=== PATIENT | male | born 1975 | race Caucasian/White ===

== ENCOUNTER 2017-01-17 04:05 | Emergency (ER) | payer OTHER ==
--- NOTE | 2017-01-17 04:40 | EDM.PDOC ---
ED HPI Trauma - General Chief Complaint: Upper Extremity Injury/Pain Stated Complaint: SHOULDER INJURY Time Seen by Provider: 01/17/17 04:37 - History of Present Illness INITIAL COMMENTS - FREE TEXT/NARRATIVE: HISTORY AND PHYSICAL: History of present illness: Patient's 41-year-old white male present to observe the right shoulder injury suffered when he fell prior to arrival there is no reported trauma or concern Review of systems: As per history of present illness and below otherwise all systems reviewed and negative. Past medical history: As per history of present illness and as reviewed below otherwise noncontributory. Surgical history: As per history of present illness and as reviewed below otherwise noncontributory. Social history: No reported history of drug or alcohol abuse. Family history: As per history of present illness and as reviewed below otherwise noncontributory. Physical exam: HEENT: Atraumatic, normocephalic, pupils reactive, negative for conjunctival pallor or scleral icterus, mucous membranes moist, throat clear, neck supple, nontender, trachea midline. Lungs: Clear to auscultation, breath sounds equal bilaterally, chest nontender. Heart: S1S2, regular, negative for clicks, rubs, or JVD. Abdomen: Soft, nondistended, nontender. Negative for masses or hepatosplenomegaly. Negative for costovertebral tenderness. Pelvis: Stable nontender. Genitourinary: Deferred. Rectal: Deferred. Extremities: Tenderness palpation in the region anterior deltoid limited range of motion secondary to pain no gross deformity Neuro: Awake, alert, oriented. Cranial nerves II through XII unremarkable. Cerebellum unremarkable. Motor and sensory unremarkable throughout. Exam nonfocal. Diagnostics: X-ray right shoulder Therapeutics: Sling Impression: #1 acute right shoulder injury Definitive disposition and diagnosis as appropriate pending reevaluation and review of above. Allergies/ADRs: Allergies No Known Allergies Allergy (Verified 01/11/16 01:17) Home Medications: Ambulatory Orders Simvastatin [Simvastatin] 20 mg PO DAILY 01/17/17 [Confirmed 01/17/17] Past Medical History HEENT History: Reports: None Cardiovascular History: Reports: None Respiratory History: Reports: None Genitourinary History: Reports: None Musculoskeletal History: Reports: None Neurological History: Reports: None Psychiatric History: Reports: Depression Endocrine/Metabolic History: Reports: None Hematologic History: Reports: None Immunologic History: Reports: None Oncologic (Cancer) History: Reports: None Dermatologic History: Reports: None - Infectious Disease History Infectious Disease History: Reports: Chicken pox - Past Surgical History Head Surgeries/Procedures: Reports: None HEENT Surgical History: Reports: None Cardiovascular Surgical History: Reports: None Respiratory Surgical History: Reports: None GI Surgical History: Reports: Appendectomy, Cholecystectomy, Hernia, abdominal Other GI Surgeries/Procedures: hernia x 2 Male Surgical History: Reports: None Endocrine Surgical History: Reports: None Neurological Surgical History: Reports: None Dermatological Surgical History: Reports: None Social & Family History - Family History Cardiac: Reports: High cholesterol, Hypertension, [place] - Tobacco Use Smoking Status *Q: Never Smoker Second Hand Smoke Exposure: Yes - Caffeine Use Caffeine Use: Reports: Energy drinks Caffeine Use Comment: 5-7 daily - Recreational Drug Use Recreational Drug Use: No - Living Situation & Occupation Living situation: Reports: (With children) Occupation: employed ([employer]) Review of Systems - Review of Systems Review Of Systems: ROS reveals no pertinent complaints other than HPI. Trauma Exam - Physical Exam Exam: See Below (See dictation) Course - Vital Signs Last Recorded V/S: Last Vital Signs Temp 36.9 C 01/17/17 04:05 Pulse 94 01/17/17 04:05 Resp 18 01/17/17 04:05 BP 119/82 01/17/17 04:05 Pulse Ox 95 01/17/17 04:05 - Orders/Labs/Meds Orders: Active Orders 24 hr Category Date Time Status Shoulder Comp Rt [CR] Stat Exams 01/17/17 04:10 Taken Departure - Departure Time of Disposition: 04:39 Disposition: Home, Self-Care 01 Condition: good Clinical Impression: Shoulder injury Forms: ED Department Discharge Additional Instructions: The following information is given to patients seen in the emergency department who are being discharged to home. This information is to outline your options for follow-up care. We provide all patients seen in our emergency department with a follow-up referral. The need for follow-up, as well as the timing and circumstances, are variable depending upon the specifics of your emergency department visit. If you don't have a primary care physician on staff, we will provide you with a referral. We always advise you to contact your personal physician following an emergency department visit to inform them of the circumstance of the visit and for follow-up with them and/or the need for any referrals to a consulting specialist. The emergency department will also refer you to a specialist when appropriate. This referral assures that you have the opportunity for followup care with a specialist. All of these measure are taken in an effort to provide you with optimal care, which includes your followup. Under all circumstances we always encourage you to contact your private physician who remains a resource for coordinating your care. When calling for followup care, please make the office aware that this follow-up is from your recent emergency room visit. If for any reason you are refused follow-up, please contact the [facility] emergency department at and asked to speak to the emergency department charge nurse. [facility] Professional [address], [address] [place] [address] Ultram is prescribed sling as directed call schedule appointment with orthopedic clinic return as needed. - My Orders Last 24 Hours: My Active Orders 01/17/17 04:10 Shoulder Comp Rt [CR] Stat - Assessment/Plan Last 24 Hours: My Active Orders 01/17/17 04:10 Shoulder Comp Rt [CR] Stat
[2017-01-17 04:57] VITALS: BP 104/60
--- NOTE | 2017-01-18 18:15 | CR ---
EXAM DATE: 01/17/17 PATIENT'S AGE: 41 Patient: ROSALIND GARVEY Facility: [place], [place] Site . Site : 1975 Study: XRay Shoulder Right [id number]/2/2017 4:25:50 AM Ordering Physician: Doctor Ann Final Report: INDICATION: SHOULDER PAIN. INJURED DURING WORK. PT STATES FELT SHOULDER POP IN AND OUT OF PLACE TECHNIQUE: Shoulder radiograph 2 views right COMPARISON: None FINDINGS: Bones: Alignment is normal. No acute fractures or aggressive bone lesions identified. Joint spaces: The glenohumeral joint is unremarkable in appearance. The acromioclavicular (AC) joint is unremarkable. No radiographic evidence of a shoulder effusion is seen. Soft tissues: The visualized hemithorax is unremarkable. No radiopaque foreign bodies are seen. IMPRESSION: 1. No acute osseous injuries are noted. Dictated by: Papi Goldsmith MD @ 01/17/2017 04:26:59 (Electronic Signature) Report Signed by Proxy and Original Signed Document filed in the Medical Record. [facility]
== END 2017-01-17 04:58 | disposition home or self-care (01) ==
LOC: MW.ED 04:05
DX: S49.91XA Unspecified injury of right shoulder and upper arm, initial encounter (principal); Z79.899 Other long term (current) drug therapy; Z90.49 Acquired absence of other specified parts of digestive tract; Z98.890 Other specified postprocedural states; W19.XXXA Unspecified fall, initial encounter
CPT/HCPCS: 73030; 99284; A4566; 99283

== ENCOUNTER → 2017-01-27 | Outpatient (CLI) | payer OTHER ==
--- NOTE | 2017-01-28 10:01 | MR ---
EXAM DATE: 01/27/17 PATIENT'S AGE: 41 Patient: ROSALIND GARVEY Facility: [place], [place] Site . Site : 1975 Study: MRI Shoulder Right [id number]/12/2017 6:48:19 PM Ordering Physician: Margarita Nielson Final Report: HISTORY: Right shoulder pain, clinical impingement syndrome. Technique: Axial sagittal oblique and coronal oblique T1, proton density and T2 fat-sat images were obtained of the right shoulder without contrast administration. Comparison: Radiographs 01/17/2017. Findings: Rotator cuff: Mild distal supraspinatus tendinosis. There is a 5 mm anterior/ posterior by 6 mm medial/lateral extent focal area of high T2 signal involving the distal supraspinatus tendon as seen on coronal oblique T2 fat-sat image #7 of series 401 compatible with a small area of partial thickness undersurface tendon tearing. This appears high-grade extending across greater than 50 percent of the thickness of the tendon distally. No definite full-thickness supraspinatus tendon tear. No supraspinatus muscle atrophy. Minor distal infraspinatus tendinosis without significant infraspinatus tendon tear or muscle atrophy. The distal teres minor tendon is intact. Teres minor muscle mass is maintained. Mild distal subscapularis tendinosis. No significant subscapularis tendon tearing or muscle atrophy. . AC joint and coracoacromial arch: Mild AC joint arthrosis. No AC joint widening or malalignment. The coracoclavicular ligament is intact. There is type 2 acromial morphology. No os acromiale. No significant subacromial spur. No excessive thickening of the coracoacromial ligament. No excessive downward sloping of the lateral acromion. The acromiohumeral measures approximately 6 mm. No subacromial-subdeltoid bursal fluid collection. Subcoracoid interval is adequate patent. No subcoracoid bursal fluid collection. . Biceps-labral complex: Long head biceps tendon is intact. There is no subluxation or dislocation of the tendon from the bicipital groove. Biceps anchor appears intact. Superior labrum appears intact. Labrum below the equator is intact. . Glenohumeral joint space: Physiologic quantity of joint fluid. No focal chondral defect or intra-articular joint body. No capsular edema. No malalignment. . Bones and soft tissues: No acute fracture. No avascular necrosis. No abnormality within the suprascapular or spinoglenoid notches nor within the quadrilateral space. Small foci of subcortical cystic-like change involve the posterior lateral aspect of the humeral head-greater tuberosity junction region. Impression: 1. Small 5 mm focus of high-grade partial thickness undersurface tearing of the distal supraspinatus tendon, right shoulder. No full-thickness tear or muscle atrophy. Mild tendinosis of the rotator cuff tendons otherwise. 2. The glenohumeral joint space and glenoid labrum are maintained. 3. Mild AC joint arthrosis. No AC joint widening, malalignment or disruption of the coracoclavicular ligament. 4. No fracture. Dictated by Brandon Chandra MD @ Jan 28 2017 8:17AM (Electronic Signature) Report Signed by Proxy and Original Signed Document filed in the Medical Record. [facility]
== END ==
LOC: MW.MRI 17:51
PROVIDERS: ATTEND Orthopaedic Surgery
DX: M25.511 Pain in right shoulder (principal); M75.41 Impingement syndrome of right shoulder; M75.111 Incomplete rotator cuff tear or rupture of right shoulder, not specified as traumatic; M19.011 Primary osteoarthritis, right shoulder
CPT/HCPCS: 73221-26-RT; 73221-RT

== ENCOUNTER 2018-02-13 14:05 | Observation (INO) | payer OTHER ==
[2018-02-13] MEDS ORDERED: methylPREDNISolone Sodium Succinate 125 MG/2 ML SDV IVPUSH ONE (14:08)
[2018-02-13] MEDS ORDERED: Albuterol/Ipratropium 3.0-0.5 MG/3 ML Neb Soln NEB ONE (14:08)
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
[2018-02-13 14:55] LABS: CHLORIDE,CL 103 mmol/L (98-107); SODIUM,NA 137 mmol/L (136-148)
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
[2018-02-13 21:06] VITALS: BP 121/76
--- NOTE | 2018-02-14 15:51 | CR ---
EXAM DATE: 02/13/18 PATIENT'S AGE: 42 Patient: ROSALIND GARVEY Facility: [place], [place] Site . Site : 1975 Study: XRay Chest [id number]/29/2018 3:04:47 PM Ordering Physician: Easton Byrnes Final Report: INDICATION: Cough TECHNIQUE: Chest 1 view. COMPARISON: None FINDINGS: Cardiovascular and mediastinum: Heart size and vasculature are normal in caliber and appearance. Mediastinum is within normal limits. Lungs and pleural space: Lungs are clear. No sign of infiltrate or mass. No sign of pleural effusion. No pneumothorax. Bones and soft tissues: No significant findings. Clothing or hair artifact over the left neck and supraclavicular region. IMPRESSION: Unremarkable chest. Dictated by Robinson Jay MD @ Feb 13 2018 3:21PM (Electronic Signature) Report Signed by Proxy. HEIDI
== END 2018-02-13 21:15 | disposition home or self-care (01) ==
LOC: MW.ED 14:05 → MW.MS 15:04
PROVIDERS: ADMIT Internal Medicine; ATTEND Internal Medicine
DX: T49.0X1A Poisoning by local antifungal, anti-infective and anti-inflammatory drugs, accidental (unintentional), initial encounter (principal); J68.0 Bronchitis and pneumonitis due to chemicals, gases, fumes and vapors; Z90.49 Acquired absence of other specified parts of digestive tract
CPT/HCPCS: 36415; 71045; 80053; 81001; 82375; 83690; 84484; 85025; 93005; 94640; 96374; 99285; J2930; 99284; G0378

== ENCOUNTER 2019-07-18 16:14 | Emergency (ER) | payer OTHER ==
[2019-07-18 16:28] VITALS: BP 121/79; PULSE 91
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
--- NOTE | 2019-07-18 16:58 | CR ---
Right tibia and fibula: AP and lateral views of the right tibia and fibula were obtained. Comparison: No previous study. No fracture or other bony abnormality is seen. Impression: No abnormality is identified on two-view right tibia and fibula exam. Diagnostic code #1 MTDD
[2019-07-18] MEDS ORDERED: Bacitracin Oint 1 GM U/D Packet TOP ONE (17:14)
[2019-07-18] MEDS ORDERED: Bacitracin Oint 1 GM U/D Packet ONE (17:16)
== END 2019-07-18 17:24 | disposition home or self-care (01) ==
LOC: MW.ED 16:14
DX: S81.831A Puncture wound without foreign body, right lower leg, initial encounter (principal); Z90.49 Acquired absence of other specified parts of digestive tract; W26.8XXA Contact with other sharp object(s), not elsewhere classified, initial encounter; Y93.B9 Activity, other involving muscle strengthening exercises; Y92.89 Other specified places as the place of occurrence of the external cause; Y99.0 Civilian activity done for income or pay
CPT/HCPCS: 12001; 73590; 99283; J2001

== ENCOUNTER 2020-01-17 06:26 | Day surgery (SDC) | payer OTHER ==
[~2020-01-17 06:26] MED LIST: Lactated Ringers 1,000 ML IV SCH
[2020-01-17] MEDS ORDERED: Bupivacaine 0.5%/EPINEPHrine 1:200,000 10 ML SDV ONE ×2 (07:00→07:41)
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
[2020-01-17] MEDS ORDERED: Lidocaine 2% 5 ML SDV ONE (07:01)
[2020-01-17] MEDS ORDERED: fentaNYL 100 MCG/2 ML SDV ONE ×2 (07:08→08:00)
[2020-01-17] MEDS ORDERED: Vancomycin 1 GM SDV ONE (07:42)
[2020-01-17] MEDS ORDERED: Dexamethasone 4 MG/ML 5 ML MDV ONE (07:59)
[2020-01-17] MEDS ORDERED: Lidocaine 2% 100 MG/5 ML Syringe ONE (08:00)
[2020-01-17] MEDS ORDERED: Ondansetron 4 MG/2 ML SDV ONE (08:00)
[2020-01-17] MEDS ORDERED: ceFAZolin 2 GM in Premix Bag 1 BAG IV SCH (08:00)
[2020-01-17] MEDS ORDERED: Propofol 200 MG/20 ML SDV ONE (08:00)
[2020-01-17] MEDS ORDERED: Midazolam 1 MG/ML 2 ML SDV ONE (08:01)
--- NOTE | 2020-01-17 08:07 | PCM.PRNOTE ---
- Free Text/Narrative Note: Explained supraclavicular block to patient. Pt verbalized understanding. Time out performed. Pt prepped and ultrasound probe draped. Ultrasound guided supraclavicular block performed. Bupivicaine 0.5 % with epi 20 ml and Lidocaine 2 % injected through a Stimiplex 20 gauge 2 inch needle. Negative blood aspiration Negative parasthesia. Pt tolerated procedure well. No signs of toxicity noted. Monitors applied during procedure and O2 applied. Pt given Fentanyl 100 mcg. Ultrasound picture stored in chart.
[2020-01-17] MEDS ORDERED: ePHEDrine 50 MG/ML SDV ONE (09:23)
[2020-01-17] MEDS ORDERED: Sodium Chloride 0.9% 20 ML ONE (09:24)
[2020-01-17] MEDS ORDERED: EPINEPHrine 1:10,000 1 MG/10 ML Syringe IVPUSH PRN (09:49)
[2020-01-17] MEDS ORDERED: Albuterol 0.083% 2.5 MG/3 ML Neb Soln NEB PRN (09:49)
[2020-01-17] MEDS ORDERED: Atropine 0.1 MG/ML 10 ML Syringe IVPUSH PRN ×2 (09:49)
[2020-01-17] MEDS ORDERED: 50% Dextrose in Water 50 ML Syringe IVPUSH PRN (09:49)
[2020-01-17] MEDS ORDERED: fentaNYL 100 MCG/2 ML SDV IVPUSH PRN (09:49)
[2020-01-17] MEDS ORDERED: Naloxone 0.4 MG/ML Syringe IVPUSH PRN (09:49)
--- NOTE | 2020-01-17 11:49 | PCM.POSTAN ---
POST ANESTHESIA ASSESSMENT - MENTAL STATUS Mental Status: Alert, Oriented - VITAL SIGNS Vital Signs: Last Vital Signs Temp 36.4 C 01/17/20 06:50 Pulse 109 H 01/17/20 11:40 Resp 19 01/17/20 11:40 BP 132/72 01/17/20 11:40 Pulse Ox 91 L 01/17/20 11:40 - RESPIRATORY Respiratory Status: Respiratory Rate WNL, Airway Patent, O2 Saturation Stable - CARDIOVASCULAR CV Status: Pulse Rate WNL, Blood Pressure Stable - GASTROINTESTINAL GI Status: No Symptoms - PAIN Pain Score: 0 - POST OP HYDRATION Hydration Status: Adequate & Stable - OBSERVATIONS Free Text/Narrative:: No anesthesia problems
--- NOTE | 2020-01-17 11:51 | PCM.OPNOTE ---
- General Post-Op/Procedure Note Date of Surgery/Procedure: 01/17/20 Operative Procedure(s): left distal biceps tendon repair Pre Op Diagnosis: left distal biceps partial rupture Post-Op Diagnosis: Same Anesthesia Technique: Moderate Sedation, Regional Block Primary Surgeon: Christian Epstein Fraud Analyst: Aretha Trevizo EBL in mLs: 25 Complications: None Condition: Good Free Text/Narrative:: Intake & Output 01/16/20 01/17/20 01/17/20 22:59 06:59 14:59 Intake Total 1800 Balance 1800
[2020-01-17] MEDS ORDERED: Acetaminophen/oxyCODONE 325-5 MG Tab PO PRN (12:16)
[2020-01-17] MEDS ORDERED: Acetaminophen/oxyCODONE 325-5 MG Tab ONE (12:17)
[2020-01-17] MEDS ORDERED: Promethazine 25 MG/ML SDV IM ONE (12:27)
[2020-01-17] MEDS ORDERED: Promethazine 25 MG/ML SDV ONE (12:38)
[2020-01-17] MEDS ORDERED: Albuterol/Ipratropium 3.0-0.5 MG/3 ML Neb Soln NEB ONE (12:52)
--- NOTE | 2020-01-17 14:32 | PCM48HPAN ---
Post Anesthesia Note - EVALUATION WITHIN 48HRS OF ANESTHETIC Vital Signs in Normal Range: Yes Patient Participated in Evaluation: Yes Respiratory Function Stable: Yes Airway Patent: Yes Cardiovascular Function Stable: Yes Hydration Status Stable: Yes Pain Control Satisfactory: Yes Nausea and Vomiting Control Satisfactory: Yes Mental Status Recovered: Yes Vital Signs: Last Vital Signs Temp 37.2 C 01/17/20 11:45 Pulse 103 H 01/17/20 12:00 Resp 18 01/17/20 12:00 BP 125/76 01/17/20 12:00 Pulse Ox 91 L 01/17/20 12:00 - COMMENTS/OBSERVATIONS Free Text/Narrative:: No anesthesia problems
[2020-01-17 16:13] VITALS: BP 123/60; PULSE 100
--- NOTE | 2020-01-17 18:23 | OR ---
SURGEON: Christian Epstein DATE OF PROCEDURE: 01/17/2020 PREOPERATIVE DIAGNOSIS: Left distal biceps partial rupture. POSTOPERATIVE DIAGNOSIS: Left distal biceps partial rupture. PROCEDURE: Left distal biceps tendon repair. PRIMARY SURGEON: Christian Epstein DO BLUE PRINTS TRIMMER: JAE Mcnamara ROLE OF BLUE PRINTS TRIMMER: Nurse practitioner, JAE Mcnamara, played an essential role in assisting in this case, helping to position the patient, retract structures as needed, as well as suturing and cutting sutures as indicated. Her presence improved patient's safety and decreased operative time. FLUID: Lactated Ringer's solution. ESTIMATED BLOOD LOSS: 25 mL. COMPLICATIONS: None. SPECIMEN: None. DISCHARGE DISPOSITION: Stable to PACU. HISTORY AND INDICATIONS FOR THE PROCEDURE: The patient was seen preoperatively in the clinic. He had suffered an injury while lifting weights to his left elbow. He felt a pop and had extreme weakness with difficulty with range of motion. Preoperative imaging failed to show a tear, however, given his pain, range of motion, and difference in thickness of the distal biceps tendon, I advised him to continue with the repair. 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 Risks and goals of the procedure were explained to the patient. Informed consent was obtained. DETAILS OF PROCEDURE: The patient was seen preoperatively by myself and the Anesthesia staff in the preoperative holding area where the operative site was marked. Anesthesia performed a regional block. The patient was then brought to the operative suite by Anesthesia staff where moderate sedation was administered. The left upper extremity was then prepped and draped in sterile manner. Time-out was called identifying the correct patient, the correct procedure, the correct site, and that antibiotics had been given within appropriate period of time. An incision was made in the midline proximal to the antecubital area and carried down about 5 cm. I then made an S-type incision to bring it more proximal. I then controlled bleeding with Bovie electrocautery. I very carefully identified the biceps tendon and followed it down to its insertion at the radial tuberosity. I had to ligate a radial recurrent vessel. I did that with silk and then used cautery. I then identified the radial tuberosity. I inserted a 2.3 mm Iconix anchor at the area of the radial tuberosity. I then using a free needle, took each of one of the strands and then went up proximal into the biceps tendon, tied that, and then tensioned through the anchor the repair and then tied it there. I then took those other strands, used a free needle, and then with a Krackow method extended the repair proximally and then tied. I then visualized more. I felt that there was a tear on the undersurface of the biceps where it inserts at the radial tuberosity. There was a questionable tear at the distal musculocutaneous junction and aponeurosis area, so I took a #2 FiberWire and placed a [id number] stitch at first and then did a Krackow stitch distally and then tied this. Having accomplished the goals, we irrigated copiously with saline and then closed subcutaneously with 2-0 Vicryl interrupted sutures followed by 3-0 nylon horizontal mattress sutures followed by Betadine-soaked Adaptic, Webril, and an Maynor. He was then placed into a hinged brace, locked at approximately 70 degrees of flexion. [id number] / MODL /[id number]
== END 2020-01-17 14:40 | disposition home or self-care (01) ==
LOC: MW.SDS 06:26
PROVIDERS: ATTEND Orthopaedic Surgery
DX: S46.212A Strain of muscle, fascia and tendon of other parts of biceps, left arm, initial encounter (principal); X50.0XXA Overexertion from strenuous movement or load, initial encounter
CPT/HCPCS: A9270-GY; C1713; J1100; J2001; J2250; J2405; J2550; J2704; J3010; J3370; J3490; J7120

== ENCOUNTER 2021-03-15 13:27 | Emergency (ER) | payer OTHER ==
[2021-03-15 13:56] VITALS: BP 123/79; PULSE 99
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
[2021-03-15] MEDS ORDERED: Sodium Chloride 0.9% 10 ML Syringe FLUSH PRN (14:01)
[2021-03-15] MEDS ORDERED: Sodium Chloride 0.9% 2.5 ML Syringe FLUSH PRN (14:01)
[2021-03-15 14:50] LABS: CARBON DIOXIDE,CO2 26.1 mmol/L (21.0-32.0); POTASSIUM,K 4.5 mmol/L (3.5-5.1)
[2021-03-15] MEDS ORDERED: Iopamidol 755 MG/ML 500 ML Multipack Bottle IVPUSH ONE (15:25)
--- NOTE | 2021-03-15 16:00 | CT ---
Indication: Facial swelling and swelling behind left ear Technique: Volumetric multidetector CT images of the temporal bones were obtained without the administration of IV contrast. Comparison: None available. Findings: The partially recommended as grossly normal in attenuation without gross midline shift or mass effect. Intrinsic attenuation and dorsey-white differentiation is difficult to assess secondary to bone kernel reconstruction. There is extensive bubbly secretion and polypoid mucosal thickening seen throughout the paranasal sinuses likely representing acute on chronic pansinus disease. The orbits and their contents are within normal limits. RIGHT TEMPORAL BONE: There is minimal cerumen within the external auditory canal, otherwise the external auditory canal is patent. The tympanic membrane is not thickened. The auditory ossicles are intact and well located. The epitympanum, mesotympanum and hypotympanum are clear. There is minimal opacification of the mastoid air cells. The internal auditory canal is intact without evidence of asymmetrical widening. The vestibule and cochlea are grossly intact without evidence of bony dehiscence. There is questionable mild dehiscence of the bony covering of the superior semicircular canal otherwise the semi circular canals are grossly unremarkable. The bony courses of the 7th cranial nerve, internal carotid artery and jugular veins are unremarkable without dehiscence. LEFT TEMPORAL BONE: The external auditory canal is clear. The tympanic membrane is not thickened. The auditory ossicles are intact and well located. The epitympanum, mesotympanum and hypotympanum are clear. The aditus ad antrum and mastoid air cells are clear. The internal auditory canal is intact without evidence of asymmetrical widening. The vestibule and cochlea are grossly intact without evidence of bony dehiscence. The lateral, superior, and posterior semicircular canals are intact without evidence of dehiscence. The bony courses of the 7th cranial nerve, internal carotid artery and jugular veins are unremarkable without dehiscence. There is partial visualization of periauricular abnormality corresponding to a somewhat prominent left parotid gland. 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 Correlate for history of right-sided hearing loss and/or Tullio`s phenomenon. Acute on chronic pansinus disease. Otherwise grossly unremarkable bilateral temporal bones with trace opacification of the right mastoid air cells which may represent remote sequela of prior otomastoiditis. Somewhat poor visualization of the area palpable concern in the left periauricular soft tissues likely corresponding to a prominent left parotid gland. Follow-up with contrast enhanced CT of the cervical soft tissues for improved characterization if there remains continued clinical concern. Please note that all CT scans at this facility use dose modulation, iterative reconstruction, and/or weight-based dosing when appropriate to reduce radiation dose to as low as reasonably achievable. Dictated by Karthik Clarke MD @ 03/15/2021 3:58:[address] Karthik Clarke @ Mar 15 2021 3:58PM
--- NOTE | 2021-03-15 16:04 | CT ---
Indication: Facial swelling behind left ear Technique: Volumetric multidetector CT images of the orbital and facial soft tissues were obtained before and after the administration of low osmolar intravenous contrast. 75 cc Isovue 370 low osmolar intravenous contrast Comparison: None available. Findings: The partially visualized brain parenchyma is normal in attenuation without evidence of abnormal enhancement. The globes and extra-ocular muscles are unremarkable. There is no significant periorbital soft tissue swelling. The retrobulbar fat is unremarkable without evidence of inflammatory change or fluid collection. There is extensive acute on chronic pansinusitis with chronic polypoid thickening and bubbly secretions. The mastoid air cells are clear. The nasopharynx is unremarkable. The fossae of Rosenmuller are clear. The visualized parotid glands are grossly unremarkable corresponding to the area of palpable concern. There is mild nonspecific soft tissue stranding of the subcutaneous soft tissues which may represent minimal superficial skin infection or inflammation. There is no evidence of pathologically enlarged cervical lymph node. The facial osseus structures are grossly intact without acute osseus abnormality. Impression: 1. Demonstration of a normal parotid gland corresponding to the area palpable concern with demonstration of mild superficial subcutaneous soft tissue swelling likely representing minimal superficial cellulitis/trauma. No fluid collection. 2. Acute on chronic pansinusitis. 3. Otherwise, unremarkable orbital and facial soft tissues. Please note that all CT scans at this facility use dose modulation, iterative reconstruction, and/or weight-based dosing when appropriate to reduce radiation dose to as low as reasonably achievable. Dictated by Karthik Clarke MD @ 03/15/2021 4:02:[address] Karthik Clarke @ Mar 15 2021 4:02PM
== END 2021-03-15 16:30 | disposition home or self-care (01) ==
LOC: MW.ED 13:27
DX: L03.211 Cellulitis of face (principal)
CPT/HCPCS: 36415; 70480; 70488; 80053; 85025; 99284; Q9967; 99283